=== PATIENT | female | born 2000 | race Caucasian/White ===

== ENCOUNTER → 2018-08-23 | Outpatient (CLI) | payer OTHER ==
[2018-08-23 15:57] LABS: BASOPHILS # (AUTO) 0.03 x10^3/uL (0-0.3); BASOPHILS % (AUTO) 0 % (0-1); EOSINOPHILS % (AUTO) 4 % (1-7); LYMPHOCYTES # (AUTO) 0.96 x10^3/uL (1-6.1); LYMPHOCYTES % (AUTO) 11 % (22-44); MD NO; MEAN CORPUSCULAR HEMOGLOBIN 29.3 pg (27.0-34.8); MEAN CORPUSCULAR HGB CONC 33.5 g/dL (32.4-35.8); MEAN CORPUSCULAR VOLUME 87.5 fL (80-100); MEAN PLATELET VOLUME 8.3 fL (7.4-10.4); MONOCYTES # (AUTO) 0.41 x10^3/uL (0-1.4); MONOCYTES % (AUTO) 5 % (2-9); NEUTROPHILS # (AUTO) 6.96 x10^3/uL (1.8-8.0); NEUTROPHILS % (AUTO) 80 % (42-75); PLATELET COUNT 239 x10^3/uL (130-400); RED BLOOD COUNT 5.29 x10^6/uL (3.82-5.3); RED CELL DISTRIBUTION WIDTH 14.7 % (9.6-15.2)
[2018-08-23 16:09] LABS: ALBUMIN 4.5 g/dL (3.4-5.0); ANION GAP 6 mmol/L (5-15); CHLORIDE 110 mmol/L (98-107)
[2018-08-23 16:17] LABS: % IRON SATURATION 42 % (20-55); ALANINE AMINOTRANSFERASE 15 U/L (12-78); ALKALINE PHOSPHATASE 66 U/L (45-117); BILIRUBIN,TOTAL 1.4 mg/dL (0.2-1.0); CHOL/HDL RATIO 1.6; CHOLESTEROL, TOTAL 119 mg/dL (140-239); CREATININE 0.85 mg/dL (0.55-1.02); HDL CHOL % 61 % (28-40); HDL CHOLESTEROL (DIRECT) 73 mg/dL (40-60); IRON LEVEL 203 mcg/dL (50-170); LDL CHOLESTEROL,CALCULATED 37 mg/dL (54-169); LDL/HDL RATIO 0.5 (0.5-3.0); THYROID STIMULATING HORMONE 0.573 mIU/L (0.358-3.740); TOTAL IRON BINDING CAPACITY 488 mcg/dL (250-450); TOTAL PROTEIN 8.2 g/dL (6.4-8.2); TRIGLYCERIDES 47 mg/dL (50-200); VLDL CHOLESTEROL 9 mg/dL (0-25)
== END | disposition home or self-care (01) ==
LOC: CFH 12:42
PROVIDERS: ATTEND Nurse Practitioner Family
DX: Z13.220 Encounter for screening for lipoid disorders (principal); Z13.1 Encounter for screening for diabetes mellitus; D64.9 Anemia, unspecified; K90.0 Celiac disease; N63.10 Unspecified lump in the right breast, unspecified quadrant; R87.810 Cervical high risk human papillomavirus (HPV) DNA test positive; Z87.19 Personal history of other diseases of the digestive system
CPT/HCPCS: 36415; 80053; 80061; 82728; 83540; 83550; 84443; 85025

== ENCOUNTER 2019-02-25 21:43 | Emergency (ER) | payer OTHER ==
[~2019-02-25] VITALS: Ht 149.9 cm; Wt 57.7 kg
[2019-02-25 21:44] VITALS: BP 153/96
[2019-02-25] MEDS ORDERED: DIPH,PERTUSS(ACELL),TET VAC/PF 0.5 ML IM-VACC ONE ×2 (22:14→22:30)
[2019-02-25] MEDS ORDERED: LIDOCAINE-MPF 1%, 5ML ONE (22:15)
[2019-02-25] MEDS ORDERED: LIDOCAINE 1%, 10ML INFIL ONE (22:30)
[2019-02-25] MEDS ORDERED: NEOSPORIN OINT. PKT 1 PACKET ONE (22:37)
== END 2019-02-25 23:13 | disposition home or self-care (01) ==
LOC: ED 23:07
DX: S61.411A Laceration without foreign body of right hand, initial encounter (principal); J45.909 Unspecified asthma, uncomplicated; Z87.891 Personal history of nicotine dependence; W54.0XXA Bitten by dog, initial encounter; Y93.89 Activity, other specified; Y92.89 Other specified places as the place of occurrence of the external cause; Y99.8 Other external cause status
CPT/HCPCS: 12041; 90471; 90715